=== PATIENT | female | born 1960 | race Two or more races ===

== ENCOUNTER 2016-09-10 10:10 | Emergency (ER) | payer OTHER ==
[2016-09-10 10:50] LABS: COLOR YELLOW; LEUKOCYTE ESTERASE,URINE TRACE (NEGATIVE); NITRITE,URINE NEGATIVE (NEGATIVE); PH,URINE 5.5 (5.0-7.5)
--- NOTE | 2016-09-10 11:05 | EDPHY ---
H & P Stated Complaint: frequent urination, cough, vomiting, SALAS since last night HPI/ROS: CHIEF COMPLAINT: Cough History by patient HISTORY OF PRESENT ILLNESS: 56-year-old man with a history of asthma and hypertension presents complaining of cough ongoing for a year and a half. Patient states she has been treated with 5 days of antibiotics and some other medicine the past with minimal relief. She was seen at [facility] couple weeks ago and started on prednisone for 5 days with no relief. Cough is rarely productive it is mostly dry. It is associated with some posttussive emesis. Occasionally when she coughs very hard or as posttussive emesis she gets of blood in the emesis or from her nose. Last time this happened was about 2 weeks ago. She has had a intermittent headache. The cough is painful and she also gets painful cramps in her back when she coughs. It is associated with some shortness of breath. She denies any leg pain or swelling. Symptoms are nonexertional. She returns today for the ER because she could get an appointment at [facility] and the symptoms seem to gotten worse over the past week. She does use inhalers. REVIEW OF SYSTEMS: As in HPI, and all other systems reviewed and are negative Source: Patient, Family - Personal History Current Tetanus Diphtheria and Acellular Pertussis (TDAP): Yes Tetanus Vaccine Date: within 10 years - Medical/Surgical History Hx Asthma: Yes Hx Chronic Respiratory Disease: No Hx Diabetes: Yes Hx Cardiac Disease: No Hx Renal Disease: No Hx Cirrhosis: No Hx Alcoholism: No Hx HIV/AIDS: No Hx Splenectomy or Spleen Trauma: No Other PMH: HTN, DM - Social History Smoking Status: Never smoked - Physical Exam Exam: General Appearance: Alert, obese, speaking full sentences, nontoxic-appearing. Eyes: Pupils equal and round no pallor or injection. ENT, Mouth: Mucous membranes moist. Respiratory: Normal, effort, lungs are clear to auscultation. The positive end- expiratory wheeze on forced expiration, no cracked. Cardiovascular: Regular rate and rhythm. S1, S2 Gastrointestinal: Abdomen is soft and nontender, no masses, bowel sounds normal. Back: No CVA tenderness, no bony tenderness Neurological: Awake, alert and oriented x 3, no pronator drift, normal gait, no pronator drift Skin: Warm and dry, no rashes. Musculoskeletal: Neck is supple nontender. No deformities. Extremitie:s full range of motion, no edema, DP pulses 2+ equal bilat Psychiatric: Patient has normal affect, there is no agitation. Constitutional: Initial Vital Signs Temperature (C) 36.5 C 09/10/16 10:33 Heart Rate 71 09/10/16 10:33 Respiratory Rate 16 09/10/16 10:33 Blood Pressure 144/91 H 09/10/16 10:33 O2 Sat (%) 93 09/10/16 10:33 O2 Delivery Mode Room Air Allergies/Adverse Reactions: No Known Allergies Allergy (Verified 08/31/15 10:02) Home Medications: Medication Instructions Recorded Proventil 08/31/15 RX: Albuterol Hfa Anes Only 2 puffs IH Q4 PRN #1 mdi 08/31/15 [Proair Hfa Icu (*)] Fluticasone Propionate [Flonase 2 sprays NS DAILY #1 spray.susp 09/10/16 Allergy Relief] Lisinopril 09/10/16 predniSONE 09/10/16 Medical Decision Making - Diagnostics Imaging Results: Imaging Impressions Chest X-Ray 09/10/16 10:56 Impression: Hypoventilatory chest with no acute findings. ED Course/Re-evaluation: 56-year-old woman with a history of asthma and hypertension presents with ongoing cough associated with some posttussive emesis and also concerns about intermittent episodes of bloody nose or throat when she coughs. Patient has been seen for similar symptoms in the past here and at like [facility]. She says that has been going on for over a year. Last time there is any bleeding symptoms was 2 weeks ago. Patient is hemodynamically stable and there is no evidence of any acute bleeding today. There is no evidence of any acute hypoxia or respiratory distress. Chest x-ray shows nothing acute. Patient was given I DuoNeb for her cough and wheezing and Tylenol for her headache with improvement in her symptoms. Because the patient has had cough symptoms for well over a year and she is on an TJ-inhibitor think it is likely this could be related and I recommended she follow up with her primary care physician to discuss switching blood pressure medicines to see if this improves her chronic cough. In addition because of the episodes of bloody nose and cough related throat bleeding will treat her seasonal allergy symptoms with nasal Flonase. - Data Points Laboratory Results: 09/10/16 10:40 Urine Color YELLOW Urine Appearance CLEAR Urine pH 5.5 (5.0-7.5) Ur Specific [place] >= 1.030 (1.002-1.030) Urine Protein 1+ H (NEGATIVE) Urine Ketones NEGATIVE (NEGATIVE) Urine Blood NEGATIVE (NEGATIVE) Urine Nitrate NEGATIVE (NEGATIVE) Urine Bilirubin NEGATIVE (NEGATIVE) Urine Urobilinogen 0.2 EU EU (0.2-1.0) Ur Leukocyte Esterase TRACE H (NEGATIVE) Urine RBC 1-3 /hpf /hpf (0-3) Urine WBC 0-1 /hpf /hpf (0-3) Ur Epithelial Cells 2+ /lpf H /lpf (NONE-1+) Urine Bacteria 1+ /hpf H /hpf (NONE SEEN) Hyaline Casts 0-1 /lpf /lpf (0-1) Urine Mucus 3+ /lpf H /lpf (NONE-1+) Urine Glucose NEGATIVE (NEGATIVE) Medications Given: Discontinued Medications Acetaminophen (Tylenol 160mg/5ml Oral Liquid) 1,000 mg PO EDNOW ONE Stop: 09/10/16 11:47 Last Admin: 09/10/16 11:52 Dose: Not Given Acetaminophen (Tylenol) 1,000 mg PO EDNOW ONE Stop: 09/10/16 11:55 Last Admin: 09/10/16 11:55 Dose: 1,000 mg Albuterol/Ipratropium (Duoneb) 3 ml IH EDNOW ONE Stop: 09/10/16 11:06 Last Admin: 09/10/16 11:16 Dose: 3 ml Departure - Departure Disposition: Home, Routine, Self-Care Clinical Impression: Chronic cough Acute seasonal allergic rhinitis Qualifiers: Allergic rhinitis trigger: unspecified Qualified Code(s): J30.2 - Other seasonal allergic rhinitis Condition: Good Instructions: Chronic Cough (ED) Additional Instructions: You were seen by Dr. Monica Garza today. I am concerned your chronic cough is related to her blood pressure medicine, lisinopril. Please discussed with your doctor at [facility] with a you should change your blood pressure medication. Try the steroid nasal spray for the symptoms of allergy and bloody nose. Use your inhalers when you are having trouble breathing or coughing. Your x-ray today was normal. Return for any worsening or new concerns. Referrals: MILY BROWN,. [Primary Care Provider] - As per Instructions Prescriptions: Fluticasone Propionate [Flonase Allergy Relief] 2 sprays NS DAILY #1 spray.susp
[2016-09-10 11:16] LABS: BACTERIA 1+ /hpf (NONE SEEN); HYALINE CASTS 0-1 /lpf (0-1); MUCUS 3+ /lpf (NONE-1+)
[2016-09-10] MEDS: IPRATROPIUM/ALBUTEROL 3 ML DEYVIAL IH ONE (11:16)
[2016-09-10 11:17] LABS: WBC,URINE 0-1 /hpf (0-3)
[2016-09-10] MEDS ORDERED: ACETAMINOPHEN 500 MG TAB ONE (11:49)
[2016-09-10] MEDS: ACETAMINOPHEN 160 MG/5 ML UDCUP PO ONE (11:52)
[2016-09-10] MEDS: ACETAMINOPHEN 500 MG TAB PO ONE (11:55)
[2016-09-10 11:58] VITALS: TEMP 97.9
[2016-09-10 13:07] VITALS: BP 124/81; PULSE 80; RESP 16; O2SAT 95
== END 2016-09-10 13:04 | disposition home or self-care (01) ==
LOC: CED 10:10
DX: J30.2 Other seasonal allergic rhinitis (principal); I10 Essential (primary) hypertension; E11.9 Type 2 diabetes mellitus without complications
CPT/HCPCS: 71020-PO; 81003-PO; 81015-PO

== ENCOUNTER 2017-01-16 12:02 | Emergency (ER) | payer OTHER ==
--- NOTE | 2017-01-16 12:27 | EDPHY ---
H & P Time Seen by Provider: 01/16/17 12:19 - Personal History Tetanus Vaccine Date: within 10 years - Medical/Surgical History Hx Asthma: Yes Hx Chronic Respiratory Disease: No Hx Diabetes: Yes Hx Cardiac Disease: No Hx Renal Disease: No Hx Cirrhosis: No Hx Alcoholism: No Hx HIV/AIDS: No Hx Splenectomy or Spleen Trauma: No Other PMH: HTN, DM - Social History Smoking Status: Never smoked Allergies/Adverse Reactions: No Known Allergies Allergy (Verified 01/16/17 12:18) Home Medications: Medication Instructions Recorded Albuterol Hfa Anes Only [Proair 2 puffs IH Q4 PRN #1 mdi 08/31/15 Hfa Icu (*)] Proventil 08/31/15 Fluticasone Propionate [Flonase 2 sprays NS DAILY #1 spray.susp 09/10/16 Allergy Relief] Lisinopril 09/10/16 predniSONE 09/10/16 Ibuprofen [Motrin] 800 mg PO Q8 #20 tab 01/16/17 methylPREDNISolone [Medrol Dose 1 each PO AD #1 ea 01/16/17 Alan] oxyCODONE IR [Oxycodone Ir (*)] 5 - 10 mg PO Q6 PRN #20 tab 01/16/17 Medical Decision Making ED Course/Re-evaluation: CHIEF COMPLAINT: Right shoulder and arm pain HISTORY OF PRESENT ILLNESS: 56-year-old Kinyarwanda-speaking patient whose daughter and is able to translate and the nurses also Kinyarwanda speaking. Apparently over the last couple of days she has developed some pain at the base of her neck radiating into her right trapezius and into her shoulder and down her arm. Her arm feels weak in painful. She had a similar episode a couple of years ago in the lower area in her back which required steroid injections. She woke up with this pain a couple of days ago initial use some ibuprofen and it resolved and then came back much worse today with much more radiation down her arm. She can move her arm but it is weak and painful to move. The pain is also in her trapezius. She denies any fevers or chills. She denies any recent instrumentation of her spine. 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 REVIEW OF SYSTEMS: A 10 point review of systems was performed and is negative with the exception of the elements mentioned in the history of present illness. PHYSICAL EXAM: HR, BP, O2 Sat, RR. Temp noted General Appearance: Alert, well hydrated, appropriate, and non-toxic appearing. Head: Atraumatic without scalp tenderness or obvious injury Eyes: Pupils equal, round, reactive to light and accommodation, EOMI, no trauma , no injection. Ears: Clear bilaterally, no perforation, normal landmarks Nose: Atraumatic, no rhinorrhea, clear. Throat: There is no erythema or exudates, no lesions, normal tonsils, mucus membranes moist. Neck: Supple, 2+ carotid upstroke, nontender, no lymphadenopathy. Respiratory: No retractions, no distress, no wheezes, and no accessory muscle use. Lungs are clear to auscultation bilaterally. Cardiovascular: Regular rate and rhythm, no murmurs, rubs, or gallops. Bilateral carotid, radial, dorsalis pedis, and posterior tibial pulses intact. Good capillary refill all extremities. Gastrointestinal: Abdomen is soft, nontender, non-distended, no masses, no rebound, no guarding, no peritoneal signs. Musculoskeletal: Normal active ROM of all extremities, atraumatic. Neurological: This patient has slightly weak shoulder shrug on the right represent a week trapezius she also has decreased function of her triceps muscle on the right. Her biceps seems to be mostly intact. 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 Alert , appropriate, and interactive. Otherwise except as described above, The patient has normal DTRs and non-focal cranial nerves, motor, sensory, and cerebellar exam. Skin: No rashes, good turgor, no nodules on palpation. Past medical history: Prior history of disc herniation with radiculopathy Past surgical history: Spinal injections but no surgery Family history: Noncontributory Social history: , employed, here with her daughter, does not abuse tobacco drugs or alcohol DIAGNOSTICS/PROCEDURES/CRITICAL CARE TIME: This patient will require an MRI but does not meet criteria to be transferred acutely to [facility]. I will treat her conservatively and she will get followed up by Neurosurgery in the next several days. DIFFERENTIAL DIAGNOSIS: The differential diagnosis for the patient's neck pain included but was not limited to musculo-skeletal pain, epidural abscess, herniated disk, spinal fracture, and intra-abdominal causes including urinary system. MEDICAL DECISION MAKING: This patient has a fairly classic exam and history for C7-T1 right-sided disc herniation with radiculopathy. She has weak triceps on that side weak trapezius and weak pantry chef. She has searing excruciating pain down the arm when she moves and the pain is worsened by any neck movement or arm movement. There is no trauma. She has no systemic illness. I will ask her to follow up with Neurosurgery. She may require another spinal injection. I will start her on a Medrol Dosepak, Oxy IR, and she can use ibuprofen as needed also. I have answered all her questions and all her daughter's questions. Departure - Departure Disposition: Home, Routine, Self-Care Clinical Impression: Cervical disc herniation Condition: Good Instructions: Cervical Disc Herniation (ED) Referrals: Clarence ROTHMAN [Primary Care Provider] - As per Instructions Nazia Mock MD [Medical Doctor] - 5-7 days, call for appt. Prescriptions: Ibuprofen [Motrin] 800 mg PO Q8 #20 tab methylPREDNISolone [Medrol Dose Alan] 1 each PO AD #1 ea oxyCODONE IR [Oxycodone Ir (*)] 5 - 10 mg PO Q6 PRN #20 tab PRN Reason: Pain, Severe
[2017-01-16 12:49] VITALS: BP 140/84; PULSE 70; RESP 20; TEMP 97.9; O2SAT 95
== END 2017-01-16 12:47 | disposition home or self-care (01) ==
LOC: CED 12:02
DX: M50.20 Other cervical disc displacement, unspecified cervical region (principal); I10 Essential (primary) hypertension; E11.9 Type 2 diabetes mellitus without complications; J45.909 Unspecified asthma, uncomplicated

== ENCOUNTER 2018-03-18 08:44 | Emergency (ER) | payer SELFPAY ==
[2018-03-18] MEDS ORDERED: GABAPENTIN 300 MG CAP PO ONE (09:27)
[2018-03-18] MEDS ORDERED: CYCLOBENZAPRINE 10 MG TAB PO ONE (09:27)
[2018-03-18] MEDS ORDERED: DEXAMETHASONE 4 MG/ML VIAL IVP ONE (09:27)
[2018-03-18] MEDS ORDERED: HYDROmorphONE/DILAUDID 2 MG/ML INJ IVP ONE ×2 (09:28→11:21)
[2018-03-18] MEDS ORDERED: ASPIRIN 81 MG CHEWABLE TAB PO ONE (09:28)
--- NOTE | 2018-03-18 09:34 | EDPHY ---
H & P Stated Complaint: Pt. states left arm numbness tingling since yesterday,nausea, denies sob Time Seen by Provider: 03/18/18 09:02 HPI/ROS: CHIEF COMPLAINT: Left arm pain, numbness in the fingers, left neck pain HISTORY OF PRESENT ILLNESS: This is a 58-year-old female with history of hypertension for which she takes lisinopril and also questionable history of diabetes, currently on no medications, presenting with reports of intermittent episodes of left arm pain over the last several months. However, the patient woke this morning at 5:30 a.m. with significant discomfort in her left arm. She describes pain in her left neck, and severe pain in the left arm, notes that it is "all over" and tingling in her fingers, "all of them". She also describes some pain left side of the neck and also under the left jaw. She reports some nausea. No shortness of breath. No palpitations. On direct questioning, reports "some" anterior chest pain. She is unable to describe the character of the pain. Pain has been present consistently since 5:30 a.m.. No clear exacerbating or relieving factors although moving her neck makes her neck hurt worse. The patient has a history I year ago of presenting with right arm radicular symptoms thought to be related to a C7-T1 radiculopathy. She describes being [facility] and having an injection in her elbow and shoulder which improved the pain. Today she reports that the left arm does feel slightly weak. She also describes weakness that is generalized in both lower extremities. 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 She denies trauma to the neck. She denies prior imaging of the neck. Patient denies any cough, palpitations, lightheadedness, dizziness, headache, low back pain, fevers, chills, or urinary complaints. REVIEW OF SYSTEMS: A comprehensive 10 system review of systems was reviewed and is otherwise negative aside from elements mentioned in the history of present illness and medical decision making. PAST MEDICAL HISTORY: Hypertension, questionable history of diabetes. SOCIAL HISTORY: Nonsmoker. Georgian-speaking only. Clerical Associate utilized via the phone. Here with her son. VITAL SIGNS Reviewed by me. GENERAL: Moderately overweight, uncomfortable appearing. Frequently holding her left arm and rubbing her fingers. . HEENT: Atraumatic. Eyes: No icterus, no injection. Mouth: moist mucous membranes. No erythema or lesions. Neck: Tenderness to palpation lower cervical spine. LUNGS: Clear to auscultation bilaterally, no wheezes, rhonchi or rales. CARDIAC: Regular rate and rhythm, no rubs, murmurs or gallops. ABDOMEN: Soft, nontender, nondistended, bowel sounds normal. BACK: No CVA tenderness. EXTREMITIES: No trauma. No edema. NEURO: Alert and oriented, cranial nerves 2-12 are intact. Motor strength: 4 + over 5 in the left upper extremity. Appears to be some weakness with the triceps and biceps and deltoid of the left upper extremity. However, patient does report that using that arm causes increase in her pain. Sensory exam intact to light touch. Belt Loop Maker strength is equal bilaterally in the hands. SKIN: Warm and dry, no rash. PSYCHIATRIC: Normal mentation, no agitation. - Personal History Tetanus Vaccine Date: within 10 years - Medical/Surgical History Hx Asthma: Yes Hx Chronic Respiratory Disease: No Hx Diabetes: Yes Hx Cardiac Disease: No Hx Renal Disease: No Hx Cirrhosis: No Hx Alcoholism: No Hx HIV/AIDS: No Hx Splenectomy or Spleen Trauma: No Other PMH: HTN, DM - Social History Smoking Status: Never smoked Constitutional: Initial Vital Signs Heart Rate 78 03/18/18 09:04 Respiratory Rate 18 03/18/18 09:04 Blood Pressure 151/107 H 03/18/18 09:04 O2 Sat (%) 95 03/18/18 09:04 O2 Delivery Mode Room Air Allergies/Adverse Reactions: No Known Allergies Allergy (Verified 03/18/18 08:55) Home Medications: Medication Instructions Recorded Albuterol Hfa Anes Only [Proair 2 puffs IH Q4 PRN #1 mdi 08/31/15 Hfa Icu (*)] Proventil 08/31/15 Fluticasone Propionate [Flonase 2 sprays NS DAILY #1 spray.susp 09/10/16 Allergy Relief] Ibuprofen [Motrin] 800 mg PO Q8 #20 tab 01/16/17 Cyclobenzaprine [Flexeril 10 MG 10 mg PO 03/18/18 (*)] Cyclobenzaprine [Flexeril 10 MG 10 mg PO TID PRN #20 tab 02/09/19 (RX)] Lisinopril/Hydrochlorothiazide 03/18/18 [Zestoretic 20-25 mg Tablet] methylPREDNISolone [Medrol Dose 4 mg PO DAILY #1 each 03/18/18 Alan] oxyCODONE/APAP 5/325 [Percocet 1 tab PO QID PRN #14 tab 03/18/18 5/325 (*)] Medical Decision Making - Diagnostics EKG Interpretation: 12-LEAD EKG: Please see the full report in [facility]. My interpretation: Sinus rhythm, no ST or T-wave changes Imaging Results: Impression: Normal heart size and aorta. No source for chest pain identified. Final concordant results discussed with Dr. Bobby at 2:15 PM. General information for patients regarding this examination can be found at [email or web address]. If you have questions or comments about this report, please contact me at [phone] (hospital) or [phone] (cell). Dictated By: Bipin Seals MD Impression: 1. Mild cardiomegaly with pulmonary venous hypertension. Does this patient have papillary muscle dysfunction? 2. Prominent abdominal bowel gas of uncertain clinical significance. Results discussed with Dr. Bobby at 11:02 AM. Dictated By: Bipin Seals MD Imaging: Discussed imaging studies w/ call center receptionist Radiologist, I viewed and interpreted images myself ED Course/Re-evaluation: 12-LEAD EKG: Please see the full report in [facility]. My interpretation: Sinus rhythm, no ST or T-wave changes Patient was given aspirin with respect to concerns that this discomfort radiating into her jaw and a little onto her chest may be cardiac. However, the most likely scenario appears to be a radicular discomfort into the left arm. She was given Flexeril 10 mg p.o., Decadron 8 mg IV, Dilaudid 1 mg IV, and a lidocaine patch was placed onto her neck. She also received gabapentin 600 mg p.o. Patient did have a troponin obtained which was 0.00. Laboratory evaluation including CBC and electrolytes: Glucose 101, otherwise electrolytes are normal. CBC is normal. Chest x-ray: Initial chest x-ray shows cardiomegaly and peribronchial fullness , presumably secondary to poor inspiratory effort. 2nd chest x-ray was obtained. This was read by Dr. Seals showing clear lungs, cardiomegaly, and fluid in the fissure. Given her vague history including arm pain, jaw pain , intermittently reporting anterior chest pain, further cardiac evaluation including a BNP was ordered. Re-evaluated the patient again. This point she continues to complain of pain in her left arm but denies any anterior chest discomfort. She is not short of breath. She has not had palpitations. She has not been lightheaded or dizzy. Given the patient's chest x-ray demonstrating cardiomegaly with increased pulmonary hypertension in the patient's pain out of proportion to examination, consideration for dissection was entertained. Patient did have a CT angiogram of the chest ordered. This was negative for any acute findings. Specifically no dissection, normal arterial flow to the left arm. Patient had a repeat troponin obtained at 4 hours after presentation. This remains negative. Patient was discharged to follow up at [facility]. I did speak to Joann, the nurse practitioner from [facility], about the patient. I discussed with her my impression that the patient needs to have an MRI to further evaluate her significant presumed radicular pain. Patient was discharged with Flexeril to use as needed for muscle spasm, instructions regarding ibuprofen for baseline pain control, gabapentin at night , Medrol Dosepak, and oxycodone if needed for severe pain. Differential Diagnosis: Differential diagnoses for the patient's symptom complex was considered including but not limited to cervical radiculopathy, aortic dissection, arterial insufficiency, acute coronary syndrome, deep venous thrombus. - Data Points Medications Given: Discontinued Medications Aspirin (Aspirin) 324 mg PO EDNOW ONE Stop: 03/18/18 09:29 Last Admin: 03/18/18 09:51 Dose: 324 mg Cyclobenzaprine HCl (Flexeril) 10 mg PO EDNOW ONE Stop: 03/18/18 09:28 Last Admin: 03/18/18 09:52 Dose: 10 mg Dexamethasone (Decadron Injection) 8 mg IVP EDNOW ONE Stop: 03/18/18 09:28 Last Admin: 03/18/18 09:58 Dose: 8 mg Gabapentin (Neurontin) 600 mg PO EDNOW ONE Stop: 03/18/18 09:28 Last Admin: 03/18/18 09:53 Dose: 600 mg Hydromorphone HCl (Dilaudid) 1 mg IVP EDNOW ONE Stop: 03/18/18 09:29 Last Admin: 03/18/18 10:03 Dose: 1 mg Hydromorphone HCl (Dilaudid) 1 mg IVP EDNOW ONE Stop: 03/18/18 11:22 Last Admin: 03/18/18 11:40 Dose: 1 mg Ketorolac Tromethamine (Toradol) 30 mg IVP EDNOW ONE Stop: 03/18/18 10:27 Last Admin: 03/18/18 10:33 Dose: 30 mg Miscellaneous Information (Patch Removal) 1 ea TD DAILY21 CHAKA Stop: 09/14/18 20:59 Last Admin: 03/18/18 11:46 Dose: 1 ea Miscellaneous Medication (Icy Hot Lidocaine/Menthol 4%/1% Patch) 1 patch TD EDNOW ONE Stop: 03/18/18 10:27 Last Admin: 03/18/18 10:38 Dose: 1 patch Point of Care Test Results: CBC CBC Collection Date 03/18/18 CBC Collection Time 09:20 WBC 5.52 RBC 4.45 HGB 14.0 HCT 42.2 PLT 269 Neut # 2.91 Neut 52.7 LYMPH # 1.91 LYMPH 34.6 MCV 94.8 Chemistry 03/18/18 03/18/18 03/18/18 13:07 09:29 09:27 POC Sodium 140 mEq/L mEq/L (135-145) POC Potassium 4.3 mEq/L mEq/L (3.3-5.0) POC Chloride 105.0 mEq/L mEq/L (97-110) POC Total CO2 25 mEq/L mEq/L (22-31) POC BUN 11 mg/dL mg/dL (7-23) POC Creatinine 0.7 mg/dL mg/dL (0.6-1.0) POC Glucose 101 mg/dL H mg/dL (70-100) POC Calcium 9.3 mg/dL mg/dL (8.5-10.4) POC Troponin I 0.00 ng/mL ng/mL 0.00 ng/mL ng/mL (0.00-0.08) (0.00-0.08) Departure - Departure Disposition: Home, Routine, Self-Care Clinical Impression: Left arm pain, Neck pain on left side Condition: Good Instructions: Cervical Disc Herniation (ED), Cervical Radiculopathy (ED) Additional Instructions: There is no evidence in the emergency department today that there is any problems with her heart or your aorta. I believe that the pain are experiencing in your arm may be related to neck issue such as arthritis or disc herniation. [facility] Tuesday or Tuesday of next week for further evaluation. To treat your neck and arm pain we will do the following: You have a combination of anti-inflammatories, muscle relaxers, and pain medication. Anti-inflammatory: I recommend Ibuprofen (Motrin, Advil) or Naproxen Sodium (Aleve) for pain and anti-inflammatory effects. You may take either one, but do not take both. Your dose is: Ibuprofen 600 mg every 6-8 hours with food. OR Naproxen Sodium (Aleve) 220 mg every 12 hours. You have also been given a prescription for a Medrol Dosepak to use as directed to treat inflammation. Please begin taking this tomorrow. Muscle relaxant: For muscle relaxation, you been given a prescription of Flexeril. Please take this as directed. It may make you sleepy. Pain management: For pain relief, I suggest high-dose Tylenol (650mg-1000mg of Tylenol) up to 3 times a day. Not exceed 3000 mg in a 24 hour period. I also suggest lidocaine patches. 4% lidocaine patches are available over-the- counter. You have also been given a prescription for oxycodone. Please take this as needed for severe pain. Additionally, ice to the neck may help relieve some of your discomfort. Apply ice for 20-30 minutes every 2-3 hours for the next 48 hours. After 48 hours, a heating pad or hot tub may feel better. Please follow up on Tuesday without fail at [facility]. Consider physical therapy or chiropractic followup for persistent discomfort. Return to the emergency department if you experience significantly worsening pain, chest pain, shortness of breath, increasing the weakness, numbness or tingling in the arm, if you develop difficulties with your bowel or bladder, or if you developed nausea, vomiting, back pain, or other concerns. No hay evidencia en el departamento de emergencias hoy de que haya algn problema con stallworth corazn o con stallworth aorta. Creo que el dolor que est experimentando en stallworth brazo puede estar relacionado con problemas del moshe annelise la artritis o la hernia de disco. Por favor imani un seguimiento con [facility] el lunes o rose marie de la pr xima semana para cornelius evaluacin adicional. Para tratar stallworth dolor de moshe y brazo haremos lo siguiente: Tiene cornelius combinacin de antiinflamatorios, relajantes musculares y analg sicos. Antiinflamatorio: Recomiendo eibuprofeno (Motrin, Advil) o el naproxen sdio ( Aleve) para el dolor y los efectos antiinflamatorios. Puede ann-marie cualquiera de los dos, skyler no tome ambos. Stallworth dosis es: Ibuprofeno 600 mg cada 6-8 horas con alimentos. O Naproxeno Sdio (Aleve) 220 mg cada 12 horas. Tambin le dieron cornelius receta para un Medrol Dosepak para usar segn las indicaciones para tratar la inflamacin. Por favor comience a ann-marie esto ma jorge. Relajante muscular: Para la relajacin muscular, le dieron cornelius receta de Flexeril. Por favor, tome esto annelise se indica. Le puede sindhu sueo. El manejo del dolor: Para aliviar el dolor, sugiero cornelius dosis kaveh de Tylenol ( 650 mg-1000 mg de Tylenol) hasta 3 veces al da. No exceder los 3000 mg en un perodo de 24 horas. Tambin sugiero los parches de lidocana. Hay parches de lidocana de 4% disponibles sin receta. Tambin se le torres dado cornelius receta de oxicodona. Por favor, tome esto segn sea necesario para el dolor lauro. Adems, el hielo en el moshe puede ayudar a aliviar algunas de blanche molestias. Aplique hielo pepe 20-30 minutos cada 2-3 horas pepe las prximas 48 horas. Despus de 48 horas, cornelius almohadilla trmica o cornelius manpreet/jacuzzi pueden sentirse mejor. Por favor imani seguimiento el lunes sin falta en [facility]. Considere la posibilidad de terapia fsica o seguimiento quiroprctico para el malestar persistente. Regrese a la aida de emergencias si experimenta un empeoramiento significativo del dolor, dolor en el pecho, dificultad para respirar, aumento de la debilidad , entumecimiento u hormigueo en el brazo, si presenta dificultades con stallworth intestino o vejiga, o si presenta nuseas, vmitos, dolor de espalda , u otras inquietudes. Referrals: [facility] [Other] - As per Instructions Prescriptions: Cyclobenzaprine [Flexeril 10 MG (RX)] 10 mg PO TID PRN #20 tab PRN Reason: Muscle Spasms methylPREDNISolone [Medrol Dose Alan] 4 mg PO DAILY #1 each oxyCODONE/APAP 5/325 [Percocet 5/325 (*)] 1 tab PO QID PRN #14 tab PRN Reason: Pain
[2018-03-18] MEDS ORDERED: LIDOCAINE 4%/MENTHOL 1% PATCH TD ONE (10:26)
[2018-03-18] MEDS ORDERED: KETOROLAC 15 MG/1 ML SDV IVP ONE (10:26)
[2018-03-18] MEDS ORDERED: IOPAMIDOL (ISOVUE 370) 100 ML BTL IV ONE (13:39)
[2018-03-18 14:38] VITALS: BP 141/84
[2018-03-18] MEDS ORDERED: PATCH REMOVAL 1 EA PATCH TD SCH (21:00)
== END 2018-03-18 15:09 | disposition home or self-care (01) ==
LOC: CED 08:44
DX: M79.602 Pain in left arm (principal); M54.2 Cervicalgia; I10 Essential (primary) hypertension
CPT/HCPCS: 71046-PO; 71275-PO; 80048-ER; 84484-ER; 96374-ER; 96375-ER; 96376-ER; J1100; J1170; J1885; Q9967